=== PATIENT | female | born 1980 | race Caucasian/White ===

== ENCOUNTER 2018-02-01 18:27 | Emergency (ER) | payer BC ==
[2018-02-01 18:38] VITALS: BP 122/65; PULSE 58; TEMP 98.2; BMI 26.6
[2018-02-01] MEDS ORDERED: CYCLOBENZAPRINE HCL 10 MG TABLET (FP) ONE (19:29)
[2018-02-01] MEDS ORDERED: KETOROLAC TROMETHAMINE 60 MG/2 ML VIAL ONE (19:29)
[2018-02-01] MEDS ORDERED: KETOROLAC TROMETHAMINE 60 MG/2 ML VIAL IM ONE (19:30)
[2018-02-01] MEDS ORDERED: CYCLOBENZAPRINE HCL 10 MG TABLET (FP) PO ONE (19:30)
--- NOTE | 2018-02-01 19:37 | PDOC ---
History of Present Illness - General Chief Complaint: Back Pain Stated Complaint: CHEST/BACK PAIN Time Seen by Provider: 02/01/18 18:48 History Source: Patient Exam Limitations: No Limitations - History of Present Illness Initial Comments: 02/01/18 19:31 here with complaints of extending pain to right lower back that is moving up to shoulder, states is worse with movement and started ~ 1 week ago. WzaS seen at [facility] and told was Muscleskeletal issue and encouraged to take Ibuprofen. Has not improved and states feels is extending. Denies fever/ cough altho had URI last week that self resolved. Injury, trauma, exercise changes or activity that could've caused back strain. Denies nausea vomiting diarrhea or constipation. Has taken ibuprofen only and no dosing for a couple days. Denies numbness or tingling to hands or feet, denies any rashes or lesions. Occurred: reports: last week Pain Location: reports: back, chest (paosterior) Method of Injury: Yes: unknown Modifying Factors: improves with: None, pain medication Loss of Consciousness: no loss of consciousness Associated Symptoms (Fall): denies symptoms Past History - Travel Traveled outside of the country in the last 30 days: Yes Close contact w/someone who was outside of country & ill: Yes - Past Medical History Allergies/Adverse Reactions: Allergies Allergy/AdvReac Type Severity Reaction Status Date / Time No Known Allergies Allergy Verified 02/01/18 18:36 Home Medications: Ambulatory Orders Cyclobenzaprine HCl 10 mg PO Q8H PRN #14 tablet 02/01/18 Sertraline HCl [Zoloft -] 100 mg PO DAILY 02/01/18 Turmeric [Curcumin] 1 gm MC ASDIR 02/01/18 COPD: No - Surgical History Cholecystectomy: Yes - Suicide/Smoking/Psychosocial Hx Smoking History: Current every day smoker Number of Cigarettes Smoked Daily: 20 Information on smoking cessation initiated: No Trauma Specific PMHX - Complaint Specific PMHX Back Injury: No Neck Injury: No Review of Systems - Review of Systems Able to Perform ROS?: Yes Is the patient limited Salvadorean proficient: Yes Constitutional: Yes: Symptoms Reported, See HPI, Malaise. No: Chills, Fever HEENTM: Yes: See HPI. No: Symptoms Reported Respiratory: Yes: See HPI. No: Symptoms reported, Cough, Wheezing Musculoskeletal: Yes: Symptoms Reported, See HPI, Back Pain Neurological: Yes: See HPI. No: Symptoms reported All Other Systems: Reviewed and Negative *Physical Exam - Vital Signs Last Vital Signs Temp Pulse Resp BP Pulse Ox 98.2 F 58 L 18 122/65 99 02/01/18 18:34 02/01/18 18:34 02/01/18 18:34 02/01/18 18:34 02/01/18 18:34 - Physical Exam General Appearance: Yes: Nourished, Appropriately Dressed HEENT: positive: VIKTOR, Normal ENT Inspection, TMs Normal, Pharynx Normal Neck: positive: Supple. negative: Tender Respiratory/Chest: positive: Lungs Clear, Normal Breath Sounds Gastrointestinal/Abdominal: positive: Normal Bowel Sounds, Soft Musculoskeletal: positive: Normal Inspection, Muscle Spasm (mild spasm palpated to the right side). negative: CVA Tenderness, Decreased Range of Motion Extremity: positive: Normal Capillary Refill, Normal Range of Motion (but has tension to paravertebral spinous muscles worse on the right than the left but also both sides tense at waist and lumbar area.) Integumentary: positive: Normal Color, Dry, Warm, Cyanotic Neurologic: positive: kaiako kura tuarua II-XII NML intact, Fully Oriented, Alert, Normal Mood/ Affect, Normal Response, Motor Strength 5/5 ED Treatment Course - RADIOLOGY Radiology Studies Ordered: Category Date Time Status CHEST X-RAY PORTABLE* [RAD] Stat Radiology 02/01/18 19:31 Ordered Progress Note - Progress Note Progress Note: CXR normal=- no infiltrates/ Back strain, no evidence of significant internal pathology, chest x-ray negative. We'll treat for back strain with NSAIDs and cyclobenzaprine and instructed patient to follow-up with PMD Saturday or Saturday for further evaluation and workup if symptoms do not resolve. *DC/Admit/Observation/Transfer Diagnosis at time of Disposition: Low back strain Qualifiers: Encounter type: initial encounter Qualified Code(s): S39.012A - Strain of muscle, fascia and tendon of lower back, initial encounter - Discharge Dispostion Disposition: HOME Condition at time of disposition: Stable Admit: No - Referrals - Patient Instructions Printed Discharge Instructions: DI for Back Strain or Sprain Additional Instructions: Rest, no heavy lifting or exercise until pain is resolved Hot soaks to neck and low back as often as possible/hot showers or Jacuzzis No massage or therapy until spasm is gone Continue ibuprofen 2-200 mg tablets every 6 hours for the next 3 days then as needed for pain and swelling Cyclobenzaprine 1-10mg every 8 hours as needed for spasm If not significant improvement within 24 hours with medication and rest regime, followup with private physician for change in medications and /or therapy. - Post Discharge Activity Forms/Work/School Notes: Back to Work
== END 2018-02-01 19:59 | disposition home or self-care (01) ==
LOC: JERFT 18:27
PROC: 3E0233Z Introduction of Anti-inflammatory into Muscle, Percutaneous Approach (ICD-10-PCS; principal; 2018-02-01)
DX: S39.012A Strain of muscle, fascia and tendon of lower back, initial encounter (principal); X58.XXXA Exposure to other specified factors, initial encounter; Y93.89 Activity, other specified; Y92.89 Other specified places as the place of occurrence of the external cause; Y99.8 Other external cause status
CPT/HCPCS: 71046-TC-FY; 96372; 99281-25